=== PATIENT | male | born 1945 | race Two or more races ===

== ENCOUNTER 2017-05-08 13:23 | Inpatient (IN) | payer OTHER ==
[~2017-05-08] VITALS: Ht 175.3 cm; Wt 72.6 kg
[~2017-05-08 13:23] MED LIST: COZAAR100 MG; VISTARIL25 MG
[2017-05-08] MEDS ORDERED: HYZAAR 100-251 EACH (14:03)
[2017-05-08] MEDS ORDERED: LANTUS SOL100 UNIT/1 (14:03)
[2017-05-16] MEDS ORDERED: AMOX1TAB12 PO (14:57)
== END 2017-05-16 15:02 | disposition home or self-care (01) | DRG 989 ==
LOC: ER 13:23 → EDBD 14:09 → MEDI 19:45
PROC: 0Y960ZX Drainage of Left Inguinal Region, Open Approach, Diagnostic (ICD-10-PCS; principal; 2017-05-08)
DX: L02.214 Cutaneous abscess of groin (principal); E11.9 Type 2 diabetes mellitus without complications